=== PATIENT | female | born 1975 | race Caucasian/White ===

== ENCOUNTER → 2019-01-31 | Outpatient (CLI) | payer BC ==
[~2019-01-31] MED LIST: CYCL10 PO; IBUP600 PO; LEVONORGESTREL1 EACH PO; Lasix20 MG PO; Metformin HCl500 M1 PO; Norco 5-325 Ta1 EACH PO
== END | disposition home or self-care (01) ==
LOC: LAB SHORT 14:28 → LAB EV 14:28
DX: L02.415 Cutaneous abscess of right lower limb (principal); L03.115 Cellulitis of right lower limb
CPT/HCPCS: 87070; 87075; 87076; 87185; 87205

== ENCOUNTER → 2020-01-18 | Outpatient (CLI) | payer BC ==
[2020-01-19 10:08] LABS: Candida species (DNA Probe) Negative (NEGATIVE); G. vaginalis (DNA Probe) Positive (NEGATIVE); T. vaginalis (DNA Probe) Negative (NEGATIVE)
== END | disposition home or self-care (01) ==
LOC: LAB SHORT 18:18 → LAB 18:18
PROVIDERS: Obstetrics & Gynecology
DX: N89.8 Other specified noninflammatory disorders of vagina (principal)
CPT/HCPCS: 87480; 87510; 87660

== ENCOUNTER 2020-10-30 10:10 | Emergency (ER) | payer BC ==
[~2020-10-30] VITALS: Ht 175.3 cm; Wt 117.9 kg
[2020-10-30 10:59] LABS: BASOPHILS ABSOLUTE AUTO 0.06 K/mm3 (0.00-0.23); BASOPHILS PERCENT AUTO 1 % (0-2); EOSINOPHILS ABSOLUTE AUTO 0.12 K/mm3 (0.00-0.68); EOSINOPHILS PERCENT AUTO 2 % (0-6); Hematocrit 50.7 % (33.0-51.0); Hemoglobin 16.5 g/dL (11.5-16.0); IMMATURE GRAN ABSOLUTE AUTO 0.02 K/mm3 (0.00-0.10); IMMATURE GRAN PERCENT AUTO 0 % (0-1); LYMPHOCYTES ABSOLUTE AUTO 2.13 K/mm3 (0.84-5.20); LYMPHOCYTES PERCENT AUTO 31 % (21-46); MONOCYTES ABSOLUTE AUTO 0.51 K/mm3 (0.16-1.47); MONOCYTES PERCENT AUTO 8 % (4-13); Mean Corpuscular HGB 30.3 pg (26.0-34.0); Mean Corpuscular HGB Conc 32.5 g/dL (31.5-36.5); Mean Corpuscular Volume 93 fL (80-100); Mean Platelet Volume 10.6 fL (9.1-12.4); NEUTROPHILS ABSOLUTE AUTO 3.96 K/mm3 (1.96-9.15); NEUTROPHILS PERCENT AUTO 58 % (41-73); Platelet Count 212 K/mm3 (150-400); RDW Coefficient Variation 12.5 % (11.7-14.2); RDW Standard Deviation 42.4 fL (35.1-46.3); Red Blood Cell Count 5.45 M/mm3 (3.80-5.20)
[2020-10-30 11:21] LABS: Magnesium, Blood 2.2 mg/dL (1.6-2.4)
[2020-10-30 11:27] LABS: Alanine Aminotransfer (ALT/SGP 93 U/L (12-78); Albumin, Blood 3.3 g/dL (3.4-5.0); Albumin/Globulin Ratio 1.1 (0.8-1.8); Alk Phos 99 U/L (50-136); Anion Gap 2 mmol/L (6-16); Aspartate Aminotrans (AST/SGOT 50 U/L (12-37); Blood Urea Nitrogen 18 mg/dL (8-24); Bun/Creatinine Ratio 20.5 (12.0-20.0); CO2, Blood 30 mmol/L (21-32); Calcium, Blood 13.2 mg/dL (8.5-10.1); Chloride, Blood 115 mmol/L (98-108); Creatinine, Blood 0.88 mg/dL (0.40-1.00); Glomerular Filtration Rate >60 (60-); Glucose, Blood 91 mg/dL (70-99); Potassium, Blood 3.9 mmol/L (3.5-5.5); Sodium, Blood 147 mmol/L (136-145); Total Protein, Blood 6.3 g/dL (6.4-8.2)
== END 2020-10-30 13:36 | disposition home or self-care (01) ==
LOC: ER 10:10
PROVIDERS: Emergency Medicine
DX: E83.52 Hypercalcemia (principal); E03.9 Hypothyroidism, unspecified; Z79.899 Other long term (current) drug therapy
CPT/HCPCS: 80053; 83735; 83970; 84100; 85025; 93005; 93010; 96361; 96374; 99283-25; J1940; J7030

== ENCOUNTER 2020-12-19 06:15 | Day surgery (SDC) | payer BC ==
[~2020-12-19] VITALS: Ht 175.3 cm; Wt 123.4 kg
[2020-12-19] MEDS ORDERED: FISH OIL 1,2001 EAC7 PO (07:17)
[2020-12-19] MEDS ORDERED: ERGO400 PO (07:18)
[2020-12-19] MEDS ORDERED: Vitamin K100 MCG PO (07:18)
--- NOTE | 2020-12-19 10:05 | NUR ---
12/19/20 1005 Francoise Pierce BLOOD DRAW DONE IN R FOOT WITH 22 BUTTERFLY. SENT TO LAB.
--- NOTE | 2020-12-19 10:31 | NUR ---
12/19/20 1031 Kelly Bahena DC'[employer] AT 1030.
--- NOTE | 2020-12-19 11:13 | NUR ---
12/19/20 Guerita3 Lauren Rose PT O2% DROPS FROM 94% TO 89-91% ON ROOM AIR. PT CURRENTLY AT 2L PER NASAL CANULAL, O2 AT 96%.
== END 2020-12-19 12:26 | disposition home or self-care (01) ==
LOC: ORSCSDS 06:15
PROVIDERS: Otolaryngology
PROC: 0GBL0ZZ Excision of Right Superior Parathyroid Gland, Open Approach (ICD-10-PCS; principal; 2020-12-19 07:30)
DX: E21.0 Primary hyperparathyroidism (principal); D35.1 Benign neoplasm of parathyroid gland; E66.01 Morbid (severe) obesity due to excess calories; Z68.41 Body mass index [BMI] 40.0-44.9, adult
CPT/HCPCS: 83970; 88305; 88331; A9270; J1100; J2250; J2405; J2704; J2710; J3010; J7120

== ENCOUNTER → 2021-06-19 | Outpatient (CLI) | payer BC ==
[~2021-06-19] MED LIST changes: +ERGO400 PO; +FISH OIL 1,2001 EAC7 PO; +Vitamin K100 MCG PO
[2021-06-20 15:09] LABS: HPV 16 Negative (Negative); HPV 18 Negative (Negative); HPV OTHER HR TYPES Negative (Negative)
== END | disposition home or self-care (01) ==
LOC: LAB 13:40 → LAB SHORT 13:40
PROVIDERS: Obstetrics & Gynecology
DX: Z01.419 Encounter for gynecological examination (general) (routine) without abnormal findings (principal); N90.89 Other specified noninflammatory disorders of vulva and perineum
CPT/HCPCS: 87624; G0123

== ENCOUNTER → 2022-07-07 | Outpatient (CLI) | payer OTHER ==
[2022-07-08 16:08] LABS: HPV 16 Negative (Negative); HPV 18 Negative (Negative); HPV OTHER HR TYPES Negative (Negative)
== END | disposition home or self-care (01) ==
LOC: LAB 09:52 → LAB SHORT 09:52
PROVIDERS: Obstetrics & Gynecology
DX: Z01.419 Encounter for gynecological examination (general) (routine) without abnormal findings (principal)
CPT/HCPCS: 87624; G0123

== ENCOUNTER 2022-10-28 14:22 | Day surgery (SDC) | payer OTHER ==
[~2022-10-28] VITALS: Ht 175.3 cm; Wt 130.7 kg
--- NOTE | 2022-10-28 15:21 | NUR ---
10/28/22 1521 Kyle Brenner CALL LIGHT WITHIN REACH. TETRACAINE IN AT 1515 PLEDGETT IN AT 1517 IN RIGHT EYE
--- NOTE | 2022-10-28 16:34 | NUR ---
10/28/22 1634 Shayy Connors TFAT30 22.0D IMPLANTED OD. SN: [id number] EXP: 09/18/25
[2022-10-28 16:41] VITALS: BP 123/82
== END 2022-10-28 17:00 | disposition home or self-care (01) ==
LOC: ORSCSDS 14:22
PROVIDERS: Ophthalmology
PROC: 08RJ3JZ Replacement of Right Lens with Synthetic Substitute, Percutaneous Approach (ICD-10-PCS; principal; 2022-10-28 16:00)
DX: H25.11 Age-related nuclear cataract, right eye (principal); H52.201 Unspecified astigmatism, right eye; H52.4 Presbyopia; E66.01 Morbid (severe) obesity due to excess calories; Z68.41 Body mass index [BMI] 40.0-44.9, adult; Z96.1 Presence of intraocular lens; E78.5 Hyperlipidemia, unspecified; G71.00 Muscular dystrophy, unspecified; E28.2 Polycystic ovarian syndrome
CPT/HCPCS: J2001; J2250; J3010; J3301; J7040; V2632

== ENCOUNTER 2022-10-30 06:12 | Day surgery (SDC) | payer OTHER ==
[~2022-10-30] VITALS: Ht 175.3 cm; Wt 127.1 kg
--- NOTE | 2022-10-30 07:50 | NUR ---
Patient up to Ambulate independently. Gait steady. History, Chart, Medications and Allergies reviewed before start of procedure.Lungs clear T/O to Auscultation. Patient confirms NPO status and agrees with scheduled surgery. Patient states colon prep results clear. Pre-Op teaching done. Pt verbalizes understanding.
--- NOTE | 2022-10-30 08:17 | NUR ---
10/30/22 [address] PALACIOS; SEE ANESTHESIA RECORDS.
--- NOTE | 2022-10-30 11:59 | NUR ---
Discharge instructions reviewed with patient. Patient verbalizes understanding. Copy given to patient to take home. Patient States Post-Procedure ride home has been arranged. Discharged via wheelchair to private car for ride home. 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
== END 2022-10-30 22:50 | disposition home or self-care (01) ==
LOC: ORSCMMR 06:12 → ORD 08:00 → ORSCMMR 08:00 → ORD 10-31 08:00
PROVIDERS: Internal Medicine Gastroenterology
PROC: 0DBM8ZX Excision of Descending Colon, Via Natural or Artificial Opening Endoscopic, Diagnostic (ICD-10-PCS; principal; 2022-10-30 08:00)
PROC: 0DBH8ZX Excision of Cecum, Via Natural or Artificial Opening Endoscopic, Diagnostic (ICD-10-PCS; principal; 2022-10-30 08:00)
PROC: 0DBP8ZX Excision of Rectum, Via Natural or Artificial Opening Endoscopic, Diagnostic (ICD-10-PCS; principal; 2022-10-30 08:00)
DX: Z12.11 Encounter for screening for malignant neoplasm of colon (principal); D12.0 Benign neoplasm of cecum; K63.5 Polyp of colon; K62.1 Rectal polyp; E66.01 Morbid (severe) obesity due to excess calories; Z68.41 Body mass index [BMI] 40.0-44.9, adult
CPT/HCPCS: 88305; J2405; J2704; J7120

== ENCOUNTER 2024-12-07 11:16 | Inpatient (IN) | payer OTHER ==
[~2024-12-07] VITALS: Ht 175.3 cm; Wt 120.5 kg
[2024-12-07 14:39] LABS: BASOPHILS ABSOLUTE AUTO 0.04 K/mm3 (0.00-0.23); BASOPHILS PERCENT AUTO 1 % (0-2); EOSINOPHILS ABSOLUTE AUTO 0.06 K/mm3 (0.00-0.68); EOSINOPHILS PERCENT AUTO 1 % (0-6); Hematocrit 46.7 % (33.0-51.0); Hemoglobin 14.5 g/dL (11.5-16.0); IMMATURE GRAN ABSOLUTE AUTO 0.02 K/mm3 (0.00-0.10); IMMATURE GRAN PERCENT AUTO 0 % (0-1); LYMPHOCYTES ABSOLUTE AUTO 1.06 K/mm3 (0.84-5.20); LYMPHOCYTES PERCENT AUTO 18 % (21-46); MONOCYTES ABSOLUTE AUTO 0.43 K/mm3 (0.16-1.47); MONOCYTES PERCENT AUTO 7 % (4-13); Mean Corpuscular HGB 28.8 pg (26.0-34.0); Mean Corpuscular Volume 93 fL (80-100); NEUTROPHILS ABSOLUTE AUTO 4.24 K/mm3 (1.96-9.15); NEUTROPHILS PERCENT AUTO 73 % (41-73); Platelet Count 154 K/mm3 (150-400); RDW Coefficient Variation 15.9 % (11.7-14.2); RDW Standard Deviation 53.4 fL (35.1-46.3); Red Blood Cell Count 5.03 M/mm3 (3.80-5.20); White Blood Cell Count 5.85 K/mm3 (4.00-11.30)
[2024-12-07 14:58] LABS: Albumin, Blood 3.3 g/dL (3.4-5.0); Albumin/Globulin Ratio 1.1 (0.8-1.8); Bilirubin, Total 2.3 mg/dL (0.1-1.0); Bun/Creatinine Ratio 16.4 (12.0-20.0); Calcium, Blood 9.3 mg/dL (8.5-10.1); Creatinine, Blood 1.22 mg/dL (0.40-1.00); Globulin, Blood 3.1 g/dL (2.2-4.0); Potassium, Blood 4.3 mmol/L (3.5-5.5); Total Protein, Blood 6.4 g/dL (6.4-8.2)
[2024-12-07] MEDS ORDERED: Furosemide 10 MG/ML 4ML Vial IV ONE (21:20)
[2024-12-07] MEDS ORDERED: Bisacodyl 10 MG Supp PR PRN (22:50)
[2024-12-07] MEDS ORDERED: Polyethylene Glycol 3350 17 gm PO PRN (22:50)
[2024-12-07] MEDS ORDERED: Sennosides 8.6 MG Tab PO PRN (22:50)
[2024-12-08] VITALS (25 sets, daily range): BP systolic 77–152; BP diastolic 62–133
[2024-12-08 05:15] LABS: Hematocrit 47.3 % (33.0-51.0); Hemoglobin 14.6 g/dL (11.5-16.0); Mean Corpuscular HGB 28.6 pg (26.0-34.0); Mean Corpuscular HGB Conc 30.9 g/dL (31.5-36.5); Mean Corpuscular Volume 93 fL (80-100); Mean Platelet Volume 11.9 fL (9.1-12.4); Platelet Count 146 K/mm3 (150-400); RDW Coefficient Variation 15.7 % (11.7-14.2); RDW Standard Deviation 53.1 fL (35.1-46.3); Red Blood Cell Count 5.11 M/mm3 (3.80-5.20); White Blood Cell Count 6.75 K/mm3 (4.00-11.30)
[2024-12-08 05:41] LABS: Albumin, Blood 3.1 g/dL (3.4-5.0); Albumin/Globulin Ratio 0.9 (0.8-1.8); Bun/Creatinine Ratio 16.5 (12.0-20.0); Calcium, Blood 9.1 mg/dL (8.5-10.1); Creatinine, Blood 1.33 mg/dL (0.40-1.00); Globulin, Blood 3.3 g/dL (2.2-4.0); Magnesium, Blood 2.1 mg/dL (1.6-2.4); Total Protein, Blood 6.4 g/dL (6.4-8.2)
--- NOTE | 2024-12-08 06:33 | NUR ---
ADMIT PCU 18 REPORT RECEIVED BY THIS RN FROM CHIEF MEDICAL DIRECTOR, @ APPROX 0500 PT ARRIVED TO ROOM @ 0519 AND SELF TRANSFERRED TO THE BED VSS
--- NOTE | 2024-12-08 08:00 | NUR ---
assumption note: this rn to assume care of patient. patient called to use bathroom. uses cane at baseline & weak on the left side due to MS history. patient denied chest pain. on oxygen at 2 liters via nasal cannula.
[2024-12-08] MEDS ORDERED: Empagliflozin 10 MG TAB PO SCH (09:00)
[2024-12-08] MEDS ORDERED: Furosemide 10 MG/ML 4ML Vial IV SCH (09:00)
[2024-12-08] MEDS ORDERED: Heparin Sodium,Porcine 5,000 UNIT/0.5 ML SDV SC SCH (09:00)
--- NOTE | 2024-12-08 12:00 | NUR ---
HANDOFF: OTF TO TAKE OVER CARE OF PATIENT. REPORT WAS GIVEN & PATIENT & AT BEDSIDE WERE NOTIFIED.
[2024-12-08] MEDS ORDERED: Metoprolol Tartrate 1 MG/ML 5 ML VIAL IV ONE (12:25)
[2024-12-08] MEDS ORDERED: Metoprolol Tartrate 25 MG Tab PO SCH (13:00)
[2024-12-08] MEDS ORDERED: Lactated Ringer's 250 ML IV SCH (13:15)
--- NOTE | 2024-12-08 13:17 | NUR ---
MD NOTIFIED OF PT HR AND BP IN RESPONSE TO RECIEVING LOPRESSOR PUSH, SEE CHART FOR VALUES. MD INSTRUCTED THIS RN TO PLACE AND GIVE 250 ML BOLUS LR. ORDER PLACED.
[2024-12-08] MEDS ORDERED: Enoxaparin 120 MG/0.8 ML SYR SC SCH (14:47)
[2024-12-08] MEDS ORDERED: Metoprolol Succinate 25 MG TABCR PO SCH (15:00)
[2024-12-08] MEDS ORDERED: Multivitamins 1 Tab PO SCH (15:05)
[2024-12-08] MEDS ORDERED: Thiamine HCl 100 MG Tab PO SCH (15:05)
[2024-12-08] MEDS ORDERED: Furosemide 10 MG / ML 2ML Vial IV SCH (16:00)
--- NOTE | 2024-12-08 17:02 | NUR ---
PER DR. RENTERIA THE PT WAS ORDERED A 250CC BOLUS D/T HYPOTENSION POST LOPRESSOR 5MG PUSH, AND SYMPTOMATIC DIZZINESS AND FATIGUE. THIS RN STARTED THE PT'S BOLUS. WHILE THIS RN WAS IN ANOTHER PT'S ROOM, ANOTHER NURSE ADDED VOLUME TO THE BOLUS THINKING IT WAS SUPPOSSED TO BE A LITER. [facility] NURSE CALLED THIS RN AND ASKED ABOUT THE GTT AND SAID THERE WAS 400CC LEFT TO GIVE. THIS RN STOPPED WHAT SHE WAS DOING AND WENT TO PCU 18. THIS RN IMEDIATELY STOPPED THE BOLUS, DR. RENTERIA ARRIVED IN THE ROOM AT THIS TIME. WHEN CHECKING HOW MANY FLUDIS THE PT RECIEVED, IT SHOWED 680CC'S. DR. RENTERIA AND THIS RN REASSESSED THE PT AND SHE HAD NOTED INCREASED CRACKLES T/O HER LUNGS. SP02 >93% ON 2L OXYMIZER MASK, AND SHE DID NOT PRESENT WITH ANY SOB. DR. RENTERIA ORDERED LASIX TO BE GIVEN AN HOUR AFTER THE ASSESSMENT AND THEN WANTED METOPROLOL 12.5MG GIVEN IF BLOOD PRESSURE AND HR REMAINS STABLE. THIS RN WAS ABLE TO GIVE THE PT BOTH 2O MG IV LASIX AND THE METOPROLOL. MAP >65. SBP >90 AT THIS TIME. ON TELE SHE IS AFIB 90'S. SHE HAS BEEN TITRAITED DOWN TO 1L NC AND SP02 >93%. PT DENIES ANY INCREASED SOB. SHE DENIES ANY ANGINA OR CHEST PRESSURE. FAMILY AT BEDSIDE AND UPDATED ON CARE. SEE NOTES FOR UPDATES.
[2024-12-09] VITALS (8 sets, daily range): BP systolic 89–112; BP diastolic 61–95
[2024-12-09 04:45] LABS: Bun/Creatinine Ratio 18.7 (12.0-20.0); Calcium, Blood 9.4 mg/dL (8.5-10.1); Creatinine, Blood 1.34 mg/dL (0.40-1.00); Magnesium, Blood 2.1 mg/dL (1.6-2.4); Phosphorus, Blood 4.5 mg/dL (2.5-4.9); Potassium, Blood 3.7 mmol/L (3.5-5.5)
--- NOTE | 2024-12-09 05:41 | NUR ---
SHIFT SUMMARY PATIENT A&OX4. ON 2L O2 VIA OXIMASK. SHORTNESS OF BREATH NOTED. EDEMA PRESENT BLE. HEART RATE JUMPING TO 150'S UPON GETTING UP TO USE THE RESTROOM, OTHERWISE VITAL SIGNS STABLE. WILL CONTINUE TO MONITOR. CALL LIGHT IN REACH. NO ACUTE ISSUES NOTED OVERNIGHT.
[2024-12-09] MEDS ORDERED: Enoxaparin 120 MG/0.8 ML SYR SC SCH (09:00)
[2024-12-09] MEDS ORDERED: Apixaban 5 MG Tab PO SCH (09:00)
[2024-12-09] MEDS ORDERED: Losartan Potassium 25 MG Tab PO SCH (09:00)
[2024-12-09 11:54] LABS: CHOL/HDL RATIO 2.3; Cholesterol 128 mg/dL (50-200); HDL Cholesterol 55 mg/dL (>39); LDL/HDL RATIO 1.1; Low Density Lipoprotein Chol 61 mg/dL (0-110); Triglycerides 60 mg/dL (30-160); Very Low Density Lipoprot Chol 12 mg/dL (6-32)
[2024-12-09 12:32] LABS: Stool Occult Blood Guaiac 1 Neg (Neg)
--- NOTE | 2024-12-09 18:04 | NUR ---
SHIFT SUMMARY PT A/OX4 AND COOPERATIVE OF CARE. PT ABLE TO EXPRESS NEEDS AND CALLED APPROPIATE. PT UP IN CHAIR FOR FOR ENTIRE SHIFT, TOLERATED WELL. PT BP'S SOFT BUT STABLE. HR REMAINED 100-110'S, TACHED UP TO 140-150'S WHEN UP TO TOILET. PT DENIES CHEST PAIN/PRESSURE BUT DID ENDORSE SOB WITH EXERTION. OTHER VSS THROGHOUT SHIFT WITH O2 SATS IN THE 90'S ON 2L SIMPLE MASK OR 2L NC. PT TRIALED RA DURING DINNER, STATS 89-93, PT DENIED SOB AT THAT TIME. PT LETHARGIC DURING SHIFT, ABLE TO STAY AWAKE WHILE CONVERSING BUT FALLS ASLEEP EASILY. PT REPORTED DIFFICULTY WITH BM, PRUNE JUICE GIVEN PER REQUEST. PT VISITED AND UPDAED TODAY.
[2024-12-09] MEDS ORDERED: Metoprolol Succinate 25 MG TABCR PO SCH (21:00)
[2024-12-10] VITALS (7 sets, daily range): BP systolic 84–113; BP diastolic 59–98
[2024-12-10 04:41] LABS: Bun/Creatinine Ratio 21.8 (12.0-20.0); Calcium, Blood 8.9 mg/dL (8.5-10.1); Creatinine, Blood 1.33 mg/dL (0.40-1.00); Phosphorus, Blood 4.6 mg/dL (2.5-4.9); Potassium, Blood 3.9 mmol/L (3.5-5.5)
--- NOTE | 2024-12-10 05:53 | NUR ---
SHIFT SUMMARY PATIENT A&O X4. BLE EDEMA NOTED. CRACKLES HEARD IN BILATERAL UPPER LUNGS AND DIMINISHED LUNG SOUNDS IN THE BILATERAL LOWER LUNGS. PATIENT ON RA. PATIENT IS HYPOTENSIVE, MAP IS GREATER THAN 65. NO ACUTE ISSUES NOTED OVERNUGHT.
[2024-12-10] MEDS ORDERED: Metoprolol Succinate 25 MG TABCR PO SCH (09:00)
[2024-12-10] MEDS ORDERED: Potassium Chloride 20 MEQ TabCR PO ONE (11:00)
--- NOTE | 2024-12-10 17:15 | NUR ---
SHIFT SUMMARY PT A/OX4 AND COOPERATIVE OF CARE. PT ABLE TO EXPRESS NEEDS AND CALLS APPROPIATE. PT BP'S REMAINED SOFT THIS SHIFT WITH STABLE MAPS. PT SATS STABLE WHILE PT WAS ON RA FOR MOST OF SHIFT, PT APPLIED O2 WHEN SHE WAS SLEEPING. OTHER VSS THROUGHOUT SHIFT. NO RPEORT OF CHEST PAIN/PRESSURE THROUGHOUT SHIFT. PT DID ENDORSE SOB WITH EXERTION, NONE REPORTED WHILE REST. PT 1 PER AIST TO TOILET, PT USING CANE. PT CONTINUES TO ENDORSE THAT SHE "FEELS TIRED." PT LASIX INCREASED AND PT ALSO PUT ON 1800 ML FLUID RESTRICTION.
[2024-12-10] MEDS ORDERED: Furosemide 10 MG/ML 4ML Vial IV SCH (18:00)
[2024-12-11 04:27] VITALS: BP 92/69
--- NOTE | 2024-12-11 06:21 | NUR ---
SHIFT SUMMARY PT A&O X4, CALM, COOPERATIVE TO CARE. HR IN THE 80'S, AFIB, SHE DENIES CP/PRESSURE, NUMB/TINGLING, SBP IN THE 90'S, MAP >65. PT DENIES ANY SYMPTOMS. O2 >90% ON RA-2L VIA OXY MASK. PT HAS MASK AT BEDSIDE AND PUTS THE MASK ON WHEN SHE IS FEELING SOB. PT USES MASK T/O DAY NEEDED AND WITH SLEEP. PT CANNOT TOLERATE LAYING FLAT AND REMAINS IN RECLINER MOST OF THE NIGHT. PT UP AND AMBULATORY TO BATHROOM WITH CANE. DIURESING WELL. PT STILL HAS BLE SWELLING. SHE DENIES ANY CONCERNS AT THIS TIME. CALL LIGHT IN REACH. WILL MONITOR PT AND REPORT TO ONCOMING RN.
[2024-12-11 07:46] VITALS: BP 98/77
[2024-12-11 09:23] LABS: Bun/Creatinine Ratio 22.4 (12.0-20.0); Calcium, Blood 9.1 mg/dL (8.5-10.1); Creatinine, Blood 1.25 mg/dL (0.40-1.00); Potassium, Blood 3.6 mmol/L (3.5-5.5)
--- NOTE | 2024-12-11 10:09 | NUR ---
UPDATE PATIENT MADE NPO AT 0900. ORDERS FOR STRESS TEST. SPOKE WITH NUCLEAR MED, PLAN FOR STRESS TEST AROUND 1300. PATIENT UPDATED WITH PLAN OF CARE.
[2024-12-11 11:12] VITALS: BP 96/71
[2024-12-11] MEDS ORDERED: Caffeine Citrated 60 MG/3 ML Vial ONE (12:21)
[2024-12-11] MEDS ORDERED: Regadenoson 0.4 MG/5 ML SYRINGE ONE (12:21)
[2024-12-11 16:24] VITALS: BP 86/57
[2024-12-11 17:01] VITALS: BP 97/69
--- NOTE | 2024-12-11 17:21 | NUR ---
SHIFT SUMMARY PATIENT ALERT, ORIENTED x4. SOFT SPOKEN. ABLE TO MAKE NEEDS KNOWN. BP SOFT, MAP >65. TELE READING AFIB. ON 2L PRN, SPO2 >90%. PATIENT STANDBY TO BATHROOM USING CANE. TOLERATING PO. PATIENT COMPLETED FIRST PORTION OF STRESS TEST THIS SHIFT, PLAN TO COMPLETE SECOND PORTION TOMORROW. OTHERWISE NO CHANGES, WILL REPORT TO DEPARTMENT HEAD JUNIOR COLLEGE RN.
[2024-12-11] MEDS ORDERED: Furosemide 10 MG / ML 2ML Vial IV SCH (18:00)
[2024-12-11 20:47] VITALS: BP 109/59
[2024-12-12] VITALS (9 sets, daily range): BP systolic 86–117; BP diastolic 58–93
--- NOTE | 2024-12-12 05:56 | NUR ---
PATIENT STAYED IN RECLINER CHAIR ALL NIGHT TO SLEEP. STATES SHE SLEEPS BETTER THERE. SLEEP STUDY CONDUCTED. UP TO BATHROOM INDEPENDENTLY. LOWER EXTREMITY EDEMA. SOME SHORTNESS OF BREATH WITH ACTIVITY. ALERT, ORIENTATED. ABLE TO MAKE NEEDS KNOWN. CONTINUE CARE
[2024-12-12 06:47] LABS: Creatinine, Blood 1.38 mg/dL (0.40-1.00); Potassium, Blood 3.6 mmol/L (3.5-5.5)
[2024-12-12] MEDS ORDERED: Potassium Chloride 20 MEQ TabCR PO SCH (08:00)
[2024-12-12] MEDS ORDERED: Furosemide 10 MG/ML 4ML Vial IV SCH (13:00)
--- NOTE | 2024-12-12 18:31 | NUR ---
SHIFT SUMMARY: A/OX4, PLEASANT AND COOPERATIVE WITH CARE. AFIB, BBB, FREQUENT PVC'S, HR 90'S-100'S, ON TELE, NEW ONSET HFrEF 20-25%, MAP <70, SOFT BP, STRESS TEST COMPLETED THIS MORNING, FLUID RESTRICTION OF 1500 ML/DAY, 4+BLE PITTING EDEMA FROM ANKLE TO [place], 3+ PITTING EDEMA TO FEET, DENIES CP OR PRESSURE. 02 >92% ON 2.5L VIA NC, HAS A MASK AT BEDSIDE FOR SLEEP AND TIMES OF INCREASED SOB, DOES NOT TOLERATE LAYING FLAT AND SLEEPS IN THE RECLINER, DENIES COUGH. HAD A BARIUM SWALLOW COMPLETED TODAY WITH NEW DIET ORDERS: MINCED/MOIST, MILDLY THICKENED LIQUIDS, PATIENT REPORTS LAST BM 12/12/24, 1 PERSON SBA, AMBULATES WITH A CANE TO THE BEDSIDE COMMODE IN THE BATHROOM, HAS A FWW IN ROOM, OUTPUT (1150)/INPUT (1060). COMPLAINT OF TWO POPPED BLISTERS TO RIGHT POSTERIOR CALF, CLEANED AND LEFT OPEN TO AIR. PATIENT IS RESTING IN HER RECLINER WITH CALL LIGHT IN REACH.
--- NOTE | 2024-12-12 19:52 | NUR ---
CARE ASSUMED NOW FOR THIS PATIENT. REPORT RECEIVED FROM KIMBERLY RN AND LISA RN. PATIENT IS ABLE TO PARTICIPATE IN BEDSIDE REPORT AND IS ASKING QUESTIONS REGARDING HER FLUID RESTRICTION. ALL QUESTIONS ANSWERED. CONTINUE CARE
[2024-12-13] VITALS (17 sets, daily range): BP systolic 85–105; BP diastolic 56–81
[2024-12-13 04:44] LABS: Bun/Creatinine Ratio 23.6 (12.0-20.0); Calcium, Blood 9.2 mg/dL (8.5-10.1); Creatinine, Blood 1.23 mg/dL (0.40-1.00); Potassium, Blood 3.7 mmol/L (3.5-5.5)
--- NOTE | 2024-12-13 05:17 | NUR ---
PATIENT DID NOT SLEEP ALL NIGHT. DOZED ON AND OFF IN RECLINER CHAIR BUT VERY LITTLE. UNSTEADY ON FEET, NEEDS TO BE WITHIN ARMS REACH, GAIT BELT, WALKER OR CANE. STATES SHE HAS FALLEN AT HOME. 1500 ML FLUID RESTRICTION. BILATERAL LE LEGS STILL VERY EDEMATOUS. NEEDS REMINDERS TO KEEP LEGS ELEVATED. CONTINUE CARE
[2024-12-13] MEDS ORDERED: Potassium Chloride 20 MEQ/15 ML UDC PO ONE (08:00)
[2024-12-13] MEDS ORDERED: Furosemide 10 MG/ML 4ML Vial IV SCH ×2 (08:00→12:00)
[2024-12-13] MEDS ORDERED: Aspirin 81 MG Chew PO SCH (09:00)
[2024-12-13] MEDS ORDERED: Atorvastatin 40 MG Tab PO SCH (09:00)
[2024-12-13] MEDS ORDERED: AcetaZOLAMIDE 250 MG Tab PO SCH (09:00)
[2024-12-13] MEDS ORDERED: Verapamil HCL 2.5 MG/ML 2ML Injection ONE (13:15)
[2024-12-13] MEDS ORDERED: NS 1,000 ML IV ONE ×2 (13:16)
[2024-12-13] MEDS ORDERED: Heparin Sodium 1000 Units/ML 10ML MDV ONE (13:16)
[2024-12-13] MEDS ORDERED: Nitroglycerin 2 MG/20 ML BTL ONE (13:16)
[2024-12-13] MEDS ORDERED: NS 250 ML IV ONE (13:16)
[2024-12-13] MEDS ORDERED: Midazolam HCl 1MG / ML 2ML Vial ONE (13:57)
[2024-12-13] MEDS ORDERED: FentaNYL Citrate 50 MCG/ML 2 ML Injection ONE (13:57)
[2024-12-13] MEDS ORDERED: Phenylephrine HCl 100 MCG/ML-NS 10MLSYR (1MG/10ML) ONE (14:08)
[2024-12-13] MEDS ORDERED: Digoxin 0.25 MG/ML 2ML Amp ONE (14:12)
[2024-12-13] MEDS ORDERED: Digoxin 0.25 MG/ML 2ML Amp IV SCH (17:30)
--- NOTE | 2024-12-13 17:48 | NUR ---
SHIFT SUMMARY: PT A&OX4 CALM AND COOPERATIVE. UNSTEADY GAIT. PT 1 PERSON ASSIST TO BSC. CALLS APPROPRIATELY. 1500ML FLUID RESTRICTION. SOFT BPS WITH SBP 80S-90S. MORNING METOPROLOL AND LASIX HELD. PROVIDER NOTIFED AND ADJUSTED ORDER FOR LASIX. TR BAND IN PLACE. SITE IS CLEAN AND DRY. RECOVERED PER ORDERS PT TOLERATING WELL. PLAN OF CARE ONGOING.
--- NOTE | 2024-12-13 20:07 | NUR ---
ASSUMED CARE OF THIS PATIENT AT 1915. PT IS A+O X4 ABLE TO MAKE NEEDS KNOWN, CALL LIGHT IN REACH. R RADIAL ACCESS SITE SOFT, NONTENDER, FREE OF BRUSING OR HEMATOMA ARM BOARD IN PLACE. EVENING METOPROLOL AND [place] HELD FOR BP OF 88/66, BP HAVE BEEN "SOFT" ALL DAY. MAP ABOVE 65. PT IS A 1 PERSON TRANSFER W/ CANE TO THE [facility], RECENTLY HAD A FALL AND IS WEARING A YELLOW HOSPITAL GOWN. SO FAR SHE IS USING HER CALL LIGHT AND CALLING FOR HELP. 1050 mls OF URINE SINCE START OF SHIFT.
[2024-12-13] MEDS ORDERED: Metoprolol Succinate 25 MG TABCR PO SCH ×2 (21:00)
[2024-12-13] MEDS ORDERED: Losartan Potassium 25 MG Tab PO SCH (21:00)
[2024-12-13] MEDS ORDERED: Apixaban 5 MG Tab PO SCH (21:00)
[2024-12-14] VITALS (8 sets, daily range): BP systolic 89–113; BP diastolic 58–77
[2024-12-14 01:41] LABS: Hematocrit 44.2 % (33.0-51.0); Hemoglobin 13.4 g/dL (11.5-16.0); Mean Corpuscular HGB 28.3 pg (26.0-34.0); Mean Corpuscular HGB Conc 30.3 g/dL (31.5-36.5); Mean Corpuscular Volume 93 fL (80-100); Mean Platelet Volume 11.9 fL (9.1-12.4); Platelet Count 147 K/mm3 (150-400); RDW Standard Deviation 51.5 fL (35.1-46.3); Red Blood Cell Count 4.74 M/mm3 (3.80-5.20); White Blood Cell Count 4.67 K/mm3 (4.00-11.30)
[2024-12-14 01:55] LABS: Bun/Creatinine Ratio 22.3 (12.0-20.0); Calcium, Blood 9.3 mg/dL (8.5-10.1); Creatinine, Blood 1.21 mg/dL (0.40-1.00); Potassium, Blood 3.2 mmol/L (3.5-5.5)
--- NOTE | 2024-12-14 06:02 | NUR ---
SHIFT SUMMARY PT IS A+O X4 ABLE TO MAKE NEEDS KNOWN, WALKS WITH CANE AT BASELINE. PT WAS FEELING A BIT UNSTEADY DURING THE NIGHT WALKING TO AND FROM THE BATHROOM, SWTCHED TO USING BSC FOR SAFETY. PT SLEPT SITTING UP IN THE CHAIR FOR HALF THE NIGHT THE OTHER HALF I ASKED HER TO SLEEP IN THE BED FOR AWHILE TO ELAVATE HER LEGS, WHICH SHE DID. PT BP HAS REMAINED SOFT THIS SHIFT. PT ON TELE AFIB W/ BBB, PVC'S (TRIGEM). EKG OBTAINED LAST NIGHT AND PLACED IN THE CHART. DENIES CHEST PAIN/ PRESSURE OR PAIN OF ANY KIND. CALLS APPT. BED IN LOWEST POSTION, CALL LIGHT IN REACH WILL REPORT TO ONCOMING RN.
[2024-12-14] MEDS ORDERED: Potassium Chloride 20 MEQ TabCR PO ONE (07:00)
[2024-12-14] MEDS ORDERED: Potassium Chloride 20 MEQ/15 ML UDC PO ONE (08:10)
[2024-12-14] MEDS ORDERED: Digoxin 0.125 MG Tab PO SCH (09:00)
[2024-12-14] MEDS ORDERED: Metoprolol Succinate 25 MG TABCR PO SCH (09:00)
[2024-12-14] MEDS ORDERED: Potassium Chloride 20 MEQ TabCR PO SCH (09:00)
--- NOTE | 2024-12-14 16:52 | NUR ---
SUMMARY- PT A/O X4, UP IN THE CHAIR MOST OF THE DAY. PIVOT TX OVER TO BEDSIDE COMMODE- DIURESING PT. COMPLIANT WITH FLUID RESTRICTION, APPEARS PT IS 2.5L DOWN. PT LUNGS WITH CRACKLES IN THE R BASE. MIN DYSMPNE WITH EXERTION. SBP REMAINS SOFT 90'S AND CONSISTANT. DR JORGE DESIRES PT RECEIVES METOPROLOL FOR SBP >90, AND WISHES PT TO BE KEPT ON TELE SHOULD SHE BE TX TO MEDICAL STATUS. PT TOLERATING ALL MEALS WITH A MINCED/MOIST DIET FOR MUSC DYST HX AND WEAKNESS WITH SWALLOW, TOLERATED PILLS WHOLE IN APPLE SAUCE. PT'S KCL LOW, RELPACED THIS AM WITH ORAL DOSING. WILL F/U WITH AM LABS. WILL REPORT TO AJ EVANS
[2024-12-15] VITALS (23 sets, daily range): BP systolic 80–120; BP diastolic 49–105
[2024-12-15 05:12] LABS: Bun/Creatinine Ratio 21.7 (12.0-20.0); Calcium, Blood 9.7 mg/dL (8.5-10.1); Creatinine, Blood 1.06 mg/dL (0.40-1.00); Magnesium, Blood 2.3 mg/dL (1.6-2.4); Potassium, Blood 3.3 mmol/L (3.5-5.5)
--- NOTE | 2024-12-15 06:33 | NUR ---
SHIFT SUMMARY PT IS A+O X4 ABLE TO MAKE NEEDS KNOWN, COOPERATIVE WITH CARE. ONE PERSON SBA TO THE BSC SHE CAN BE UNSTEADY ON HER FEET AND HAD A FALL DURING HER HOSPITAL STAY. SHE AMBULATES WITH A CANE AT BASELINE. SHE SLEPT IN THE RECLINER LAST NIGHT AND DID NOT WANT TO TRANSFER TO THE BED WHEN OFFERED. SE REMAINED ON 2L NC T/O THE NIGHT SATTING ABOVE 90% SpO2. TELE REMAINS IN PLACE WITH NO CHANGES AFIB W/ PVCs, BBB. DENIES CHEST PAIN OR PRESSURE. BLOOD PRESSURE SOFT THIS MORNING SYSTOLIC 80's, MORNING LASIX HELD AT THIS TIME. CALL LIGHT IN REACH, WILL REPORT TO ONCOMING RN.
[2024-12-15] MEDS ORDERED: Potassium Chloride 20 MEQ/15 ML UDC PO ONE (07:20)
[2024-12-15] MEDS ORDERED: Potassium Chloride 20 MEQ TabCR PO SCH (09:00)
--- NOTE | 2024-12-15 17:48 | NUR ---
Shift Summary Pt alert, oriented this am, appears to be sleeping intermittently t/o, wakes easily to verbal stimuli. Pt calm and cooperative with care. Pt denies pain, chest pain/pressure, sob, nausea, dizziness and numb/tingling. BP soft for majority of shift, help lasix and metoprolol per parameters. Tele afib, 60-80's. Edema noted. Spo2 >90% on 1l 2o via nc. Life vest at bedside, being place. Call light within reach
[2024-12-15] MEDS ORDERED: Metoprolol Succinate 25 MG TABCR PO SCH (18:00)
[2024-12-15] MEDS ORDERED: Dopamine/Dextrose 250 ML IV SCH (19:30)
[2024-12-15] MEDS ORDERED: Furosemide 100 MG in NS 100 ML IV SCH (19:30)
--- NOTE | 2024-12-15 19:30 | NUR ---
Discussed BP, 80/52 (62) with Dr Ramires and was reccommended to discuss with Dr Salas and was redirected to Dr Ramires. Per Dr Ramires, plans to give lasix this evening and change holding parameters to hold if map less than 60. Gave 1800 dose of lasix iv 40 mg. Received call from Dr Salas to discuss case at 1920, new order to d/c iv push lasix, metoprolol and losartan and start iv lasix gtt continuous at 10 mg/hr, dopamine starting at 2.5 mcg/kg/min titrate up to 15 mcg/kg/min to keep systolic >90; hold dopamine if heart rate >120 bpm and transfer pt to ICU. Report given to Rn assuming care of patient.
--- NOTE | 2024-12-15 19:53 | NUR ---
TRANSFER TO ICU ASSUMED CARE OF PT @1909 - RECEIVED REPORT FROM ROJELIO Hilton RN. ROJELIO Hilton ON PHONE WITH HOSPITALIST / INSTRUCTOR EXTENSION WORK REGARDING CONTINUED LOW BP'S. DECISION MADE TO TRANSFER TO ICU. ORDERS PLACED. REPORT GIVEN LAINA Riggs RN ICU. RELINQUISHED CARE OF PT @ 1948. PT TO ICU .
--- NOTE | 2024-12-15 22:23 | NUR ---
PATIENT TO ICU 7 FROM PCU 18 AT APPROX 1950. PATIENT IS ALERT AND ORIENTED X4, WALKED FROM WHEEL CHAIR TO BED. SP02 96% ON 1-2L VIA NC. DENIES SOB. HR A.FIB, BB, PVCs 60-s-70s, LIFE VEST CURRENTLY ON. BP STABLE, WILL START DOPAMINE IF NEEDED TO MAINTAIN SYSTOLIC >90. LASIX DRIP STARTED, CALLED DR. JORGE TO SEE IF HE WANTED URINE OUTPUT PERAMETER, NONE GIVEN AT THIS TIME, LASIX AT SET RATE OF 10MG/HR. PT UP 1 PERSON ASSIST TO BSC, PUREWICK PLACED AT NIGHT FOR SLEEP. PHOTOS OF WOUNDS UPDATED AND IN CHART. CALL LIGHT IN REACH
[2024-12-16] VITALS (75 sets, daily range): BP systolic 74–111; BP diastolic 38–94
[2024-12-16 01:33] LABS: Bun/Creatinine Ratio 22.9 (12.0-20.0); Calcium, Blood 9.7 mg/dL (8.5-10.1); Creatinine, Blood 1.09 mg/dL (0.40-1.00); Magnesium, Blood 2.4 mg/dL (1.6-2.4); Potassium, Blood 3.9 mmol/L (3.5-5.5)
--- NOTE | 2024-12-16 06:42 | NUR ---
SHIFT SUMMARY PATIENT IS ALERT AND ORIENTED X4. SP02 96% ON 1-2L VIA BC, DENIES SOB AT REST. HR A.FIB, BBB, FREQUENT PVCs, RATE 70s-80s. BP REMAINED STABLE THROUGH THE NIGHT, DOPAMINE WAS NEVER STARTED, SYSTOLIC REMAINED ABOVE 90. DENIES CP PRESSURE. LIFE VEST ON. LASIX DRIP INFUSING THROUGH THE NIGHT, PATIENT HAS HAD 4600 MLS OUT SINCE DRIP WAS STARTED. PUREWICK IN PLACE WITH ATTENDS. PATIENT ENCOURAGED TO REPOSITION EVERY TWO HOURS AND ASSISTANCE NEEDED. PHOTOS UPDATED IN CHART, WOUND ON LLE AND BRUISING AND REDNESS ON COCCYX/BUTTOCKS. CALL LIGHT IN REACH
[2024-12-16] MEDS ORDERED: Potassium Chloride 20 MEQ/15 ML UDC PO ONE ×2 (07:00→09:15)
--- NOTE | 2024-12-16 07:56 | NUR ---
ASSUMED CARE BEDSIDE REPORT RECIEVED. PT RESTING IN BED, ALERT AND ORIENTED. DR BURGER, MULTIPLE RESIDENTS, AND DR JORGE AT BEDSIDE TO DISCUSS PLAN OF CARE WITH PT INPUT. AWAITING NEW MED ORDERS.
[2024-12-16] MEDS ORDERED: DOBUtamine 250 MG/D5W 250 ML 250 ML IV SCH (08:30)
[2024-12-16] MEDS ORDERED: Milrinone/Dextrose 100 ML IV SCH (10:10)
[2024-12-16] MEDS ORDERED: Ondansetron HCl 2 MG / ML 2ML Vial IV PRN ×2 (14:35→15:00)
[2024-12-16 17:01] LABS: BASOPHILS ABSOLUTE AUTO 0.02 K/mm3 (0.00-0.23); BASOPHILS PERCENT AUTO 0 % (0-2); EOSINOPHILS ABSOLUTE AUTO 0.04 K/mm3 (0.00-0.68); EOSINOPHILS PERCENT AUTO 1 % (0-6); Hematocrit 46.9 % (33.0-51.0); Hemoglobin 14.4 g/dL (11.5-16.0); IMMATURE GRAN ABSOLUTE AUTO 0.01 K/mm3 (0.00-0.10); IMMATURE GRAN PERCENT AUTO 0 % (0-1); LYMPHOCYTES ABSOLUTE AUTO 0.63 K/mm3 (0.84-5.20); LYMPHOCYTES PERCENT AUTO 13 % (21-46); MONOCYTES ABSOLUTE AUTO 0.42 K/mm3 (0.16-1.47); MONOCYTES PERCENT AUTO 9 % (4-13); Mean Corpuscular HGB 28.4 pg (26.0-34.0); Mean Corpuscular HGB Conc 30.7 g/dL (31.5-36.5); Mean Corpuscular Volume 93 fL (80-100); Mean Platelet Volume 11.3 fL (9.1-12.4); NEUTROPHILS ABSOLUTE AUTO 3.85 K/mm3 (1.96-9.15); NEUTROPHILS PERCENT AUTO 77 % (41-73); Platelet Count 171 K/mm3 (150-400); RDW Coefficient Variation 13.9 % (11.7-14.2); RDW Standard Deviation 47.5 fL (35.1-46.3); Red Blood Cell Count 5.07 M/mm3 (3.80-5.20); White Blood Cell Count 4.97 K/mm3 (4.00-11.30)
--- NOTE | 2024-12-16 17:33 | NUR ---
SHIFT SUMMARY PT HAS REMAINED ALERT AND ORIENTED THROUGHOUT THE SHIFT. PT SLEEPING OFF AND ON THIS AFTERNOON. PT HAS DENIED PAIN OR SOB THIS SHIFT. PT CONTINUES WITH HR IN AFIB 90-120'S AT THIS TIME. PT TRIALED ON DOBUTAMINE AND MILRINONE GTT'S THIS SHIFT PER DR JORGE. PT DID NOT TOLERATED DUE TO CONTINUED HYPOTENSION. PT WITH DOPAMINE INFUSING AT 2 MCG/KG/MIN AT THIS TIME THROUGH PIV. PT WITH LASIX GTT AT 10 MG/HR. PUREWICK REMAINS IN PLACE WITH YELLOW URINE OUTPUT NOTED. PT ASSISTS WITH REPOSITIONING IN BED, BUT IS WEAK WITH MOVEMENT. EDEMA TO BLE'S UNCHANGED. PT WITH POOR APPETITE THIS SHIFT. PT ON 2L O2 NC. PT SPOUSE AT BEDSIDE THIS AFTERNOON. WILL CONTINUE TO MONITOR AND REPORT OFF TO ONCOMING RN.
[2024-12-17] VITALS (72 sets, daily range): BP systolic 69–121; BP diastolic 44–88
[2024-12-17 03:52] LABS: Albumin, Blood 3.1 g/dL (3.4-5.0); Albumin/Globulin Ratio 0.9 (0.8-1.8); Bilirubin, Total 1.9 mg/dL (0.1-1.0); Bun/Creatinine Ratio 23.3 (12.0-20.0); Calcium, Blood 9.5 mg/dL (8.5-10.1); Creatinine, Blood 1.2 mg/dL (0.40-1.00); Globulin, Blood 3.3 g/dL (2.2-4.0); Magnesium, Blood 2.2 mg/dL (1.6-2.4); Potassium, Blood 5.2 mmol/L (3.5-5.5); Total Protein, Blood 6.4 g/dL (6.4-8.2)
--- NOTE | 2024-12-17 05:52 | NUR ---
SHIFT SUMMARY PATIENT WAS DROWSY AND SLEPT MOST OF SHIFT. NURSE ENCOURAGED REPOSITIONING OF BODY EVERY 2 HOURS AND INTAKE OF FLUID (WATER). PATIENT IS ON A FLUID RESTRICTION OF 1500MLS AT NIGHT. PATIENT IS A&O X4 AND ABLE TO MAKE HER NEEDS KNOWN. WAS AT BEDSIDE AT START OF SHIFT, HE WENT HOME AROUNG 1999. PATIENT HAS PUREWICK IN PLACE DRAINING TO SUCTION. HR HAS BEEN IN THE IN 80'S WITH A HIGH OF 106 ONCE. SBP IN THE 90'S TO 110'S. HAS RIGHT HAND 20G IV AND LEFT WRIST 20G IV. LASIX RUNNING @10MLS AND DOPAMINE RUNNING @2 MCG. PATIENT LIKES TO SLEEP IN A SEMI HULL POSITION DUE TO BECOMING SOB WHEN LAYS DOWN TO FLAT. CALL LIGHT WITHIN REACH.
[2024-12-17] MEDS ORDERED: Metolazone 2.5 MG Tab PO SCH (12:00)
[2024-12-17] MEDS ORDERED: Furosemide 80 MG Tab PO SCH (12:00)
[2024-12-17] MEDS ORDERED: Furosemide 40 MG Tab PO SCH (14:30)
--- NOTE | 2024-12-17 14:52 | NUR ---
DOPAMINE RESTARTED TO MAINTAIN MAP >65, SEE FLOW SHEETS FOR TITRATIONS. WILL HOLD SECOND PO LASIX DOSE UNTIL B/P STABILIZED.
--- NOTE | 2024-12-17 18:24 | NUR ---
SHIFT SUMMARY PATIENT ALERT AND ORIENTED X4. CALLS APPROPRIATELY AND ABLE TO MAKE HER NEEDS KNOWN. MOVING ALL EXTREMITIES WELL BUT ON GONG WEAKNESS. CARDIAC: SBP 70S-100S. DOPAMINE GTT RESTARTED 2MCG/KG/MIN TO MAINTAIN MAP >65. ATRIAL FIBRILLATION, WITH SOME PVCS. DENIES ANY DIZZINESS/NAUSEA OR SOB. LASIX GTT STOPPED AND INITATED ORAL MEDICATION THERAPY SEE OCT. PULMONARY: BIBASILAR CRACKLES, UPPER LOBES CLEAR. ON 2LPM O2 VIA NC, SPO2 99-100%. TRIAL ON RA, PT SPO2 87%. : URINE YELLOW, PURE WICK IN PLACE. GI: ABDO SOFT/NONTENDER. MOBILTY: UP TO RECLINER TODAY SBA/MIN ASSIST WITH FWW. UP TO COMMODE. BED BATH, BEDDING CHANGE AND GOWN CHANGE TODAY. FAMILY INTO VISIT TODAY. TRIAGE CLINICIAN IN TO VISIT. PT DID WELL ON CURRENT DIET NO S/S OF ASPIRATION TODAY.
[2024-12-18] VITALS (42 sets, daily range): BP systolic 80–125; BP diastolic 52–97
[2024-12-18 03:48] LABS: Albumin, Blood 3.1 g/dL (3.4-5.0); Albumin/Globulin Ratio 0.8 (0.8-1.8); Bilirubin, Total 1.7 mg/dL (0.1-1.0); Bun/Creatinine Ratio 26.9 (12.0-20.0); Calcium, Blood 9.9 mg/dL (8.5-10.1); Creatinine, Blood 1.19 mg/dL (0.40-1.00); Globulin, Blood 3.7 g/dL (2.2-4.0); Magnesium, Blood 2.5 mg/dL (1.6-2.4); Potassium, Blood 3.5 mmol/L (3.5-5.5); Total Protein, Blood 6.8 g/dL (6.4-8.2)
--- NOTE | 2024-12-18 05:46 | NUR ---
SHIFT SUMMARY PATIENT SLEPT THROUGH SHIFT. AT BEDSIDE AT START AND THEN LEFT AROUND 1999. PATIENT DRANK WATER TOTAL 390 THROUGH SHIFT. PATIENT LIKES TO BEEN IN SEMI FOWLERS POSITION TO SLEEP. NURSE ENCOURAGED PATIENT TO REPOSTION AND EDUCATED PATIENT ON TH EIMPORTANCES. PATIENT WS IN CHAIR WHEN SHIFT STARTED. A&O X4, SBP 110-125'S AND HR IN 70-80'S. PATIENT ON 1L OF O2 VIA NC. DOPAMINE RUNNING @ 2MCG INFUSING IN LEFT WRIST 20G IV. IV WAS CHECKED Q HOUR FOR REDNESS, PAIN, OR SWELLING, NONE WAS NOTED SURING SHIFT. RIGHT HAND 20G IV SALINE LOCKED. PATIENT ON FREE FLUID RESTRICTION OF 1500, 1000MLS DURING DAY AND 500MLS DURING NIGHT. PATIENT HAS PUREWICK WITH DEPENDS IN PLACE. CALL LIGHT WITHIN REACH.
[2024-12-18] MEDS ORDERED: Potassium Chloride 20 MEQ/15 ML UDC PO SCH (08:02)
[2024-12-18] MEDS ORDERED: Spironolactone 50 MG Tab PO SCH (09:00)
--- NOTE | 2024-12-18 11:53 | NUR ---
REASSESSMENT PT HAS BEEN SITTING UP IN THE CHAIR SINCE RIGHT AFTER BREAKFAST. SHE JUST GOT UP TO THE COMMODE FOR BM AND VOID. SHE OPTED TO LEAVE THE PUREWICK OUT AT THIS TIME BECAUSE SHE THINKS SHE WILL BE CONTINENT. SHE REMAINS ALERT AND ORIENTED. DOPAMINE GTT TURNED OFF ABOUT 0830 THIS MORNING AND MAP HAS REMAINED ABOVE 65. DR. RUFFIN STATED THAT HE IS OK WITH A MAP LESS THAN 65 LONG PT'S MENTATION IS CLEAR AND SHE IS MAKING URINE. REMAINS IN AFIB WITH RATE IN THE 80S, FREQUENT PVCS. PT'S VISITED THIS MORNING AND HAS BEEN UPDATED.
--- NOTE | 2024-12-18 17:46 | NUR ---
SHIFT SUMMARY PT SPENT THE DAY SITTING UP IN THE CHAIR. SHE GETS UP TO THE COMMODE TO VOID. OFFERED TO TAKE PT ON A WALK, BUT SHE REFUSED. ALSO OFFERED A SHOWER, BUT PT ONLY WANTED A BED BATH. LUNGS ARE CLEAR IN THE UPPERS, CRACKLES IN THE BASES. REMAINS ON 1L/NC. ATTEMPTED TO TURN IT OFF, BUT PT DROPPED TO 86%. PT HAS BEEN HAVING A SMALL AMT OF BLOOD IN HER NOSE WELL. ADDED HUMIDITY TO HER OXYGEN. AFIB WITH MULTIPLE PVC. MAP HAS BEEN ABOVE 65, PT IS ALERT AND ORIENTED, AND PT IS VOIDING. EATING ALL OF HER MEALS. 2 BMS TODAY. PT'S SPENT MOST OF THE DAY AT THE BEDSIDE.
[2024-12-19] VITALS (11 sets, daily range): BP systolic 96–128; BP diastolic 53–80
[2024-12-19 03:16] LABS: BASOPHILS ABSOLUTE AUTO 0.04 K/mm3 (0.00-0.23); BASOPHILS PERCENT AUTO 1 % (0-2); EOSINOPHILS ABSOLUTE AUTO 0.12 K/mm3 (0.00-0.68); EOSINOPHILS PERCENT AUTO 2 % (0-6); Hematocrit 44.5 % (33.0-51.0); Hemoglobin 14.1 g/dL (11.5-16.0); IMMATURE GRAN ABSOLUTE AUTO 0.01 K/mm3 (0.00-0.10); IMMATURE GRAN PERCENT AUTO 0 % (0-1); LYMPHOCYTES PERCENT AUTO 26 % (21-46); MONOCYTES ABSOLUTE AUTO 0.56 K/mm3 (0.16-1.47); MONOCYTES PERCENT AUTO 9 % (4-13); Mean Corpuscular HGB 28.8 pg (26.0-34.0); Mean Corpuscular HGB Conc 31.7 g/dL (31.5-36.5); Mean Corpuscular Volume 91 fL (80-100); NEUTROPHILS ABSOLUTE AUTO 3.72 K/mm3 (1.96-9.15); NEUTROPHILS PERCENT AUTO 61 % (41-73); Platelet Count 154 K/mm3 (150-400); RDW Coefficient Variation 13.8 % (11.7-14.2); RDW Standard Deviation 46.1 fL (35.1-46.3); Red Blood Cell Count 4.89 M/mm3 (3.80-5.20); White Blood Cell Count 6.05 K/mm3 (4.00-11.30)
[2024-12-19 03:36] LABS: Albumin, Blood 3.2 g/dL (3.4-5.0); Albumin/Globulin Ratio 0.9 (0.8-1.8); Bilirubin, Total 1.7 mg/dL (0.1-1.0); Calcium, Blood 9.5 mg/dL (8.5-10.1); Creatinine, Blood 1.16 mg/dL (0.40-1.00); Globulin, Blood 3.5 g/dL (2.2-4.0); Magnesium, Blood 2.6 mg/dL (1.6-2.4); Potassium, Blood 3.2 mmol/L (3.5-5.5); Total Protein, Blood 6.7 g/dL (6.4-8.2)
[2024-12-19] MEDS ORDERED: Potassium Chloride 20 MEQ TabCR PO ONE (03:50)
--- NOTE | 2024-12-19 05:19 | NUR ---
SHIFT SUMMARY PATIENT SLEPT VERY WELL THROUGH SHIFT, ONLY GETTING UP TO USE BEDSIDE COMMODE. PATIENT USED PUREWICK WHILE IN BED SLEEPING WITH DEPENDS UNDER HER. A&O X4, SBP 90-110'S AND HR 70-80'S. HAD PUDDING WITH MEDS AND ON A FREE FLUID RESTRICTION TOTAL 600MLS ON SHIFT. HAS RIGHT HAND 20G IV AND LEFT WRIST 20G IV BOTH SALINE LOCKED. PATIENT ON 1L OF OXYGEN VIA NC SATTING ABOVE 95%. PATIENT USES CALL LIGHT WHEN NEEDS SOMETHING. PATIENT LIKES TO SLEEP IN SEMI FOWLERS POSITION BUT TURNS SLIGHTLY TO SIDES. CALL LIGHT WITH REACH.
[2024-12-19 10:41] LABS: Calcium, Blood 9.8 mg/dL (8.5-10.1); Creatinine, Blood 1.13 mg/dL (0.40-1.00); Potassium, Blood 3.9 mmol/L (3.5-5.5)
--- NOTE | 2024-12-19 12:18 | NUR ---
REASSESSMENT PT REMAINS ALERT AND ORIENTED. SAT UP IN THE CHAIR THIS MORNING AFTER SHE WOKE UP. PUREWICK REMOVED SOON PT WAS OUT OF BED. SHE WALKED TO THE SHOWER WITH AIDE THIS MORNING. LUNGS ARE CLEAR IN THE UPPERS, CRACKLES IN THE BASES. CONTINUES IN AFIB WITH PVCS. MAP 79. EATING WELL. DR. BURGER ROUNDED AND GAVE OK FOR HER TO BE PCU STATUS. PT'S AT THE BEDSIDE.
--- NOTE | 2024-12-19 16:41 | NUR ---
SHIFT SUMMARY PT HAS BEEN SITTING UP IN THE CHAIR FOR THE DURATION OF THE SHIFT. SHE REMAINS ALERT AND ORIENTED. LUNGS STILL HAVE A FEW CRACKLES IN THE BASES. ATTEMPTED TO TITRATE OFF OXYGEN, BUT DROPS TO THE 80s ON RA, 94% ON 0.5L/NC. REMAINS IN AFIB WITH FREQUENT PVC, MAP HOLDING ABOVE 65. GETTING UP TO THE COMMODE TO VOID. EATING ALL OF HER MEALS, COMPLIANT WITH FLUID RESTRICTION. PT'S HSUBAND VISITED AND WAS UPDATED.
--- NOTE | 2024-12-19 18:16 | NUR ---
TRANSFER PT TRANSFERRED TO PCU 14 VIA WC WITH RN AND AIDE . REPORT GIVEN TO ARMEN DOS SANTOS RN. ALL BELONGINGS TRANSFERRED WITH PT. PT TOLERATED TRANSFER WELL. PT'S AWARE OF NEW ROOM NUMBER.
[2024-12-20 00:38] VITALS: BP 92/71
[2024-12-20 04:43] VITALS: BP 98/73
[2024-12-20 05:04] LABS: Albumin, Blood 3.4 g/dL (3.4-5.0); Albumin/Globulin Ratio 0.9 (0.8-1.8); Bilirubin, Total 1.7 mg/dL (0.1-1.0); Bun/Creatinine Ratio 34.1 (12.0-20.0); Calcium, Blood 9.8 mg/dL (8.5-10.1); Creatinine, Blood 1.23 mg/dL (0.40-1.00); Globulin, Blood 3.8 g/dL (2.2-4.0); Magnesium, Blood 2.8 mg/dL (1.6-2.4); Potassium, Blood 3.4 mmol/L (3.5-5.5); Total Protein, Blood 7.2 g/dL (6.4-8.2)
--- NOTE | 2024-12-20 06:54 | NUR ---
SHIFT SUMMARY: PT IS A&OX4 WITH FLAT AFFECT. HYPOTENSIVEON, SYS 90'S MAP >65, ON 1L NC, SATS >95%, DROPS TO 88% ON RA. REMAINS IN A-FIB IN THE 80'S WITH RUNS OF BIGEMINY, AND OCCASIONAL TRIGEMINY. DENIES PAIN. TOLERATING A MINCED AND MOIST DIET WITH 1500 ML FLUID RESTRICTION. TAKES PILLS WHOLE ONE AT A TIME IN APPLESAUCE. X1 ASSIST TO BSC. PT IS CONTINENT/INCONTINENT OF URINE, PULL-UP IN PLACE AND CHANGED NEEDED. VOIDING ADEQUATE AMOUNTS OF CONCENTRATED URINE. X1 LARGE BM THIS SHIFT. BED IN LOWEST POSITION, CALL LIGHT WITHIN REACH. CALLS APPROPRIATELY AND IS ABLE TO ADVOCATE NEEDS EFFECTIVELY.
[2024-12-20] MEDS ORDERED: Potassium Chloride 20 MEQ TabCR PO ONE (07:30)
[2024-12-20 07:56] VITALS: BP 99/51
[2024-12-20 11:45] VITALS: BP 105/81
[2024-12-20 16:02] VITALS: BP 105/59
--- NOTE | 2024-12-20 17:59 | NUR ---
SHIFT SUMMARY: PT A&OX4 CALM AND COOPERATIVE. TRIALED ROOM AIR BUT PT DESAT TO 88%. RECONNECTED TO 1L NC AND MAINTAINED >94%. PT REPORTED NO SOB OR CHEST PAIN. 1 PERSON ASSIST TO BATHROOM. NO INCIDENCE OF INCONTINENCE DURING SHIFT. PT RECOMMENDED HOME HEALTH. HOME O2 CONSULT COMPLETED TODAY. PLAN TO DISCHARGE TOMORROW. USES CALL LIGHT APPROPRIATELY AND BED IS LOCKED AND LOW.
--- NOTE | 2024-12-20 19:41 | NUR ---
ASSUMPTION OF CARE ASSUMED PT'S CARE AT 1900,BEDSIDE REPORT COMPLETED.PT ASSISTED TO THE BEDSIDE COMMODE.PT DENIES PAIN,DENIES NEEDS.CALL LIGHT AND PT'S ITEMS WITHIN REACH.WILL CONTINUE TO MONITOR.
[2024-12-20 19:59] VITALS: BP 104/55
[2024-12-20] MEDS ORDERED: Carvedilol 3.125 MG Tab PO SCH (21:00)
[2024-12-21 00:20] VITALS: BP 92/62
[2024-12-21 00:25] VITALS: BP 77/55
[2024-12-21 00:27] VITALS: BP 92/62
[2024-12-21 04:37] LABS: BASOPHILS ABSOLUTE AUTO 0.05 K/mm3 (0.00-0.23); BASOPHILS PERCENT AUTO 1 % (0-2); EOSINOPHILS ABSOLUTE AUTO 0.12 K/mm3 (0.00-0.68); EOSINOPHILS PERCENT AUTO 2 % (0-6); Hematocrit 46.2 % (33.0-51.0); Hemoglobin 14.4 g/dL (11.5-16.0); IMMATURE GRAN ABSOLUTE AUTO 0.03 K/mm3 (0.00-0.10); IMMATURE GRAN PERCENT AUTO 1 % (0-1); LYMPHOCYTES ABSOLUTE AUTO 1.55 K/mm3 (0.84-5.20); LYMPHOCYTES PERCENT AUTO 29 % (21-46); MONOCYTES ABSOLUTE AUTO 0.58 K/mm3 (0.16-1.47); MONOCYTES PERCENT AUTO 11 % (4-13); Mean Corpuscular HGB Conc 31.2 g/dL (31.5-36.5); Mean Corpuscular Volume 90 fL (80-100); Mean Platelet Volume 10.8 fL (9.1-12.4); NEUTROPHILS ABSOLUTE AUTO 2.99 K/mm3 (1.96-9.15); NEUTROPHILS PERCENT AUTO 56 % (41-73); Platelet Count 188 K/mm3 (150-400); RDW Coefficient Variation 13.7 % (11.7-14.2); RDW Standard Deviation 45.2 fL (35.1-46.3); Red Blood Cell Count 5.15 M/mm3 (3.80-5.20); White Blood Cell Count 5.32 K/mm3 (4.00-11.30)
[2024-12-21 04:40] VITALS: BP 104/79
[2024-12-21 05:07] LABS: Albumin, Blood 3.3 g/dL (3.4-5.0); Albumin/Globulin Ratio 0.9 (0.8-1.8); Bilirubin, Total 1.4 mg/dL (0.1-1.0); Bun/Creatinine Ratio 34.1 (12.0-20.0); Calcium, Blood 9.8 mg/dL (8.5-10.1); Creatinine, Blood 1.35 mg/dL (0.40-1.00); Globulin, Blood 3.7 g/dL (2.2-4.0); Potassium, Blood 3.4 mmol/L (3.5-5.5)
--- NOTE | 2024-12-21 06:35 | NUR ---
PT SLEPT IN CHAIR FOR PART OF THE NIGHT,WENT TO BED AT 0230.HR 70'S-80'S,NO C/O CHEST PAIN/DISCOMFORT.COMPLAINED OF CONSTIPATION,PRN SENNA GIVEN.PT HAD A MEDIUM BOWEL MOVEMENT.OXYGEN SATURATION >92% ON 1L VIA NC.PT DENIES SOB.BP REMAIN SOFT ,SBP 80'S-104.PT RESTING IN BED SLEEPING AT THIS TIME.CALL LIGHT AND PT'S ITEMS WITHIN REACH.BED IN THE LOWEST POSITION.PT DENIES NEEDS AT THIS TIME.WILL GIVE REPORT TO DAYSHIFT NURSE FOR CONTINUITY OF CARE.
[2024-12-21 07:20] VITALS: BP 97/52
[2024-12-21] MEDS ORDERED: Potassium Chloride 20 MEQ TabCR PO ONE (08:00)
[2024-12-21 11:14] VITALS: BP 91/57
[2024-12-21] MEDS ORDERED: ELIQUIS5 M2 PO (11:44)
[2024-12-21] MEDS ORDERED: CARV3.125 PO (11:46)
[2024-12-21] MEDS ORDERED: JARDIANCE10 MG PO (11:47)
[2024-12-21] MEDS ORDERED: DIGOX125 MC1 PO (11:47)
[2024-12-21] MEDS ORDERED: FURO80 PO (11:48)
[2024-12-21] MEDS ORDERED: POTA20LUD PO (11:49)
[2024-12-21] MEDS ORDERED: SPIR50 PO (11:49)
--- NOTE | 2024-12-21 13:58 | NUR ---
SHIFT SUMMARY: PT A&OX4 CALM AND COOPERATIVE DURING SHIFT. HOME O2 EVAL COMPLETED AND PT DID NOT QUALIFY. DISCHARGE EDUCATION COMPLETED AND LIFEVEST ON PT. PT VERBALIZED UNDERSTANDING. DISCHARGE HOME WITH HOME HEALTH. PRESENT AT DISCHARGE.
[2024-12-21 14:28] LABS: CORTISOL, FREE BY ED/LC-MS/MS 1.09 ug/dL
== END 2024-12-21 14:07 | disposition home health service (06) | DRG 286 ==
LOC: ER 11:16 → PCU 22:46 → ERHOLD 22:46 → PCU 12-08 05:25 → ICUE 12-15 19:50 → PCU 12-19 18:25
PROVIDERS: Family Medicine; Hospitalist; Internal Medicine Cardiovascular Disease; Student in an Organized Health Care Education/Training Program; ADMIT Student in an Organized Health Care Education/Training Program
PROC: 4A023N7 Measurement of Cardiac Sampling and Pressure, Left Heart, Percutaneous Approach (ICD-10-PCS; principal; 2024-12-13)
PROC: B2111ZZ Fluoroscopy of Multiple Coronary Arteries using Low Osmolar Contrast (ICD-10-PCS; 2024-12-13)
DX: I13.0 Hypertensive heart and chronic kidney disease with heart failure and stage 1 through stage 4 chronic kidney disease, or unspecified chronic kidney disease (principal); I50.21 Acute systolic (congestive) heart failure; I48.19 Other persistent atrial fibrillation; E87.3 Alkalosis; I42.0 Dilated cardiomyopathy; I44.7 Left bundle-branch block, unspecified; G71.11 Myotonic muscular dystrophy; E87.6 Hypokalemia; R13.10 Dysphagia, unspecified; I50.82 Biventricular heart failure; N18.32 Chronic kidney disease, stage 3b; I34.0 Nonrheumatic mitral (valve) insufficiency; K59.00 Constipation, unspecified; F41.9 Anxiety disorder, unspecified; Z90.710 Acquired absence of both cervix and uterus; Z98.890 Other specified postprocedural states; Z79.899 Other long term (current) drug therapy
CPT/HCPCS: 36415; 71046; 74230; 76937; 78452; 80048; 80053; 80061; 82272; 82530; 83690; 83735; 83880; 84100; 84484; 85025; 85027; 92526; 92610; 92611; 93005; 93010; 93017; 93458; 94761; 94762; 96374; 97110; 97116; 97162; 97165; 97530; 97535; 99152; 99153; 99285-25; A9270; A9500; C1769; C1894; C8929; J0706; J1160; J1250; J1265; J1644; J1650; J1940; J2250; J2260; J2371; J2405; J2785; J3010; J7030; J7050; J7120; Q9957; Q9967

== ENCOUNTER 2025-04-22 07:07 | Emergency (ER) | payer OTHER ==
[~2025-04-22] VITALS: Ht 175.3 cm; Wt 103.9 kg
[~2025-04-22 07:07] MED LIST changes: +CARV3.125 PO; +DIGOX125 MC1 PO; +ELIQUIS5 M2 PO; +FURO80 PO; +JARDIANCE10 MG PO; +POTA20LUD PO; +SPIR50 PO
[2025-04-22 08:05] LABS: BASOPHILS ABSOLUTE AUTO 0.04 K/mm3 (0.00-0.23); BASOPHILS PERCENT AUTO 1 % (0-2); EOSINOPHILS ABSOLUTE AUTO 0.19 K/mm3 (0.00-0.68); EOSINOPHILS PERCENT AUTO 3 % (0-6); Hematocrit 37.9 % (33.0-51.0); Hemoglobin 12.2 g/dL (11.5-16.0); IMMATURE GRAN ABSOLUTE AUTO 0.02 K/mm3 (0.00-0.10); IMMATURE GRAN PERCENT AUTO 0 % (0-1); LYMPHOCYTES ABSOLUTE AUTO 1.42 K/mm3 (0.84-5.20); LYMPHOCYTES PERCENT AUTO 21 % (21-46); MONOCYTES ABSOLUTE AUTO 0.42 K/mm3 (0.16-1.47); MONOCYTES PERCENT AUTO 6 % (4-13); Mean Corpuscular HGB Conc 32.2 g/dL (31.5-36.5); Mean Corpuscular Volume 96 fL (80-100); NEUTROPHILS ABSOLUTE AUTO 4.56 K/mm3 (1.96-9.15); NEUTROPHILS PERCENT AUTO 69 % (41-73); NRBC ABSOLUTE 0.00 K/mm3 (0.00-0.02); NRBC Auto 0.0 /100 WBC (0.0-0.2); Platelet Count 158 K/mm3 (150-400); RDW Coefficient Variation 12.5 % (11.7-14.2); RDW Standard Deviation 43.8 fL (35.1-46.3)
[2025-04-22 08:47] LABS: Alanine Aminotransfer (ALT/SGP 95 U/L (12-78); Albumin, Blood 3.2 g/dL (3.4-5.0); Albumin/Globulin Ratio 0.9 (0.8-1.8); Anion Gap 7 mmol/L (3-11); Aspartate Aminotrans (AST/SGOT 67 U/L (12-37); Bilirubin, Total 0.4 mg/dL (0.1-1.0); Blood Urea Nitrogen 34 mg/dL (8-24); CO2, Blood 27 mmol/L (21-32); Calcium, Blood 8.7 mg/dL (8.5-10.1); Chloride, Blood 113 mmol/L (98-108); Creatinine, Blood 1.56 mg/dL (0.40-1.00); Globulin, Blood 3.6 g/dL (2.2-4.0); Glucose, Blood 94 mg/dL (70-99); Magnesium, Blood 2.4 mg/dL (1.6-2.4); Potassium, Blood 5.0 mmol/L (3.5-5.5); Sodium, Blood 142 mmol/L (136-145); Total Protein, Blood 6.8 g/dL (6.4-8.2)
[2025-04-22 09:00] VITALS: BP 97/60
== END 2025-04-22 09:22 | disposition home or self-care (01) ==
LOC: ER 07:07
PROVIDERS: Emergency Medicine
DX: R79.9 Abnormal finding of blood chemistry, unspecified (principal); I50.20 Unspecified systolic (congestive) heart failure; Z79.01 Long term (current) use of anticoagulants; Z79.899 Other long term (current) drug therapy; I48.91 Unspecified atrial fibrillation; N18.9 Chronic kidney disease, unspecified
CPT/HCPCS: 80053; 80162; 83735; 85025; 93005; 93010; 99285-25

== ENCOUNTER 2025-08-24 13:31 | Observation (INO) | payer OTHER ==
[~2025-08-24] VITALS: Ht 175.3 cm; Wt 104.0 kg
[2025-08-24 14:15] LABS: BASOPHILS ABSOLUTE AUTO 0.06 K/mm3 (0.00-0.23); BASOPHILS PERCENT AUTO 1 % (0-2); EOSINOPHILS ABSOLUTE AUTO 0.10 K/mm3 (0.00-0.68); EOSINOPHILS PERCENT AUTO 1 % (0-6); Hematocrit 45.8 % (33.0-51.0); Hemoglobin 14.9 g/dL (11.5-16.0); IMMATURE GRAN ABSOLUTE AUTO 0.02 K/mm3 (0.00-0.10); IMMATURE GRAN PERCENT AUTO 0 % (0-1); LYMPHOCYTES ABSOLUTE AUTO 1.73 K/mm3 (0.84-5.20); LYMPHOCYTES PERCENT AUTO 20 % (21-46); MONOCYTES ABSOLUTE AUTO 0.45 K/mm3 (0.16-1.47); MONOCYTES PERCENT AUTO 5 % (4-13); Mean Corpuscular HGB Conc 32.5 g/dL (31.5-36.5); Mean Corpuscular Volume 94 fL (80-100); NEUTROPHILS ABSOLUTE AUTO 6.50 K/mm3 (1.96-9.15); NEUTROPHILS PERCENT AUTO 73 % (41-73); NRBC ABSOLUTE 0.00 K/mm3 (0.00-0.02); NRBC Auto 0.0 /100 WBC (0.0-0.2); Platelet Count 187 K/mm3 (150-400); RDW Coefficient Variation 12.1 % (11.7-14.2); RDW Standard Deviation 41.9 fL (35.1-46.3)
[2025-08-24 14:46] LABS: Alanine Aminotransfer (ALT/SGP 108.0 U/L (12-78); Albumin, Blood 3.5 g/dL (3.4-5.0); Albumin/Globulin Ratio 1.0 (0.8-1.8); Anion Gap 8.0 mmol/L (3-11); Aspartate Aminotrans (AST/SGOT 63.0 U/L (12-37); Bilirubin, Total 0.6 mg/dL (0.1-1.0); Blood Urea Nitrogen 32.0 mg/dL (8-24); CO2, Blood 25.0 mmol/L (21-32); Calcium, Blood 9.6 mg/dL (8.5-10.1); Chloride, Blood 114.0 mmol/L (98-108); Creatinine, Blood 1.36 mg/dL (0.40-1.00); Globulin, Blood 3.5 g/dL (2.2-4.0); Glucose, Blood 98.0 mg/dL (70-99); Magnesium, Blood 2.4 mg/dL (1.6-2.4); Potassium, Blood 4.9 mmol/L (3.5-5.5); Sodium, Blood 142.0 mmol/L (136-145); Total Protein, Blood 7.0 g/dL (6.4-8.2)
[2025-08-24] MEDS ORDERED: Amiodarone HCl 450 MG in NS 250 ML IV SCH (15:55)
[2025-08-24] MEDS ORDERED: Amiodarone HCl 150 MG in NS 100 ML IV ONE (15:55)
[2025-08-24] MEDS ORDERED: FLU VACC TS2025-26(6MOS UP)/PF 45 MCG/0.5 ML SYRINGE IM SCH (16:25)
[2025-08-24] MEDS ORDERED: DAPAGLIFLOZIN10 MG PO (16:36)
[2025-08-24] MEDS ORDERED: METO50ER PO (16:36)
[2025-08-24] MEDS ORDERED: ENTRESTO 24 MG1 EAC2 PO (16:37)
[2025-08-24] MEDS ORDERED: CARV6.25 PO (16:37)
[2025-08-24] MEDS ORDERED: FURO20 PO (16:37)
[2025-08-24] MEDS ORDERED: VITAMIN D5000 UNIT PO (16:37)
[2025-08-24 20:28] VITALS: BP 98/60
--- NOTE | 2025-08-24 20:40 | NUR ---
UPDATE SPOKE WITH DR MORALES TO CLARIFY METOPROLOL ORDER. PATIENT TAKES 75MG PO BID AT HOME, HOSPTIAL DOSE IS 100MG PO. T/O TO GIVE 500ML NS BOLUS TO INCREASE SBP >100, THEN GIVE DOSE OF METOPROLOL OF 100MG PO TONIGHT.
[2025-08-24] MEDS ORDERED: NS 500 ML IV ONE (21:00)
[2025-08-25 00:06] VITALS: BP 80/52
[2025-08-25 00:28] VITALS: BP 89/64
[2025-08-25 03:17] VITALS: BP 96/59
[2025-08-25 04:08] LABS: BASOPHILS ABSOLUTE AUTO 0.04 K/mm3 (0.00-0.23); BASOPHILS PERCENT AUTO 1 % (0-2); EOSINOPHILS ABSOLUTE AUTO 0.12 K/mm3 (0.00-0.68); EOSINOPHILS PERCENT AUTO 1 % (0-6); Hematocrit 43.2 % (33.0-51.0); Hemoglobin 14.0 g/dL (11.5-16.0); IMMATURE GRAN ABSOLUTE AUTO 0.02 K/mm3 (0.00-0.10); IMMATURE GRAN PERCENT AUTO 0 % (0-1); LYMPHOCYTES ABSOLUTE AUTO 2.16 K/mm3 (0.84-5.20); LYMPHOCYTES PERCENT AUTO 26 % (21-46); MONOCYTES ABSOLUTE AUTO 0.49 K/mm3 (0.16-1.47); MONOCYTES PERCENT AUTO 6 % (4-13); Mean Corpuscular HGB Conc 32.4 g/dL (31.5-36.5); Mean Corpuscular Volume 95 fL (80-100); NEUTROPHILS ABSOLUTE AUTO 5.52 K/mm3 (1.96-9.15); NEUTROPHILS PERCENT AUTO 66 % (41-73); NRBC ABSOLUTE 0.00 K/mm3 (0.00-0.02); NRBC Auto 0.0 /100 WBC (0.0-0.2); Platelet Count 172 K/mm3 (150-400); RDW Coefficient Variation 12.1 % (11.7-14.2); RDW Standard Deviation 41.9 fL (35.1-46.3)
[2025-08-25 04:34] LABS: Alanine Aminotransfer (ALT/SGP 88.0 U/L (12-78); Albumin, Blood 3.1 g/dL (3.4-5.0); Albumin/Globulin Ratio 1.0 (0.8-1.8); Anion Gap 6.0 mmol/L (3-11); Aspartate Aminotrans (AST/SGOT 45.0 U/L (12-37); Bilirubin, Total 0.5 mg/dL (0.1-1.0); Blood Urea Nitrogen 36.0 mg/dL (8-24); CO2, Blood 28.0 mmol/L (21-32); Calcium, Blood 9.1 mg/dL (8.5-10.1); Chloride, Blood 113.0 mmol/L (98-108); Creatinine, Blood 1.4 mg/dL (0.40-1.00); Globulin, Blood 3.2 g/dL (2.2-4.0); Glucose, Blood 95.0 mg/dL (70-99); Potassium, Blood 4.7 mmol/L (3.5-5.5); Sodium, Blood 142.0 mmol/L (136-145); Total Protein, Blood 6.3 g/dL (6.4-8.2)
--- NOTE | 2025-08-25 05:32 | NUR ---
SHIFT SUMMARY PATIENT A/OX4. PLEASANT AND COOPERATIVE WITH ALL CARE. CONTINUOUS CARDIAC MONITORING. V-PACED @ 90BPM WITHOUT ECTOPY. RHYTHM AND RATE UNCHANGED ALL SHIFT. PATIENT DENIED CARDIAC SYMPTOMS. NO SOB, N/V, DIZZINESS. UP TO RR WITH SBA AND FWW. RECEIVED NS BOLUS PER EMAR. ANDREW PO INTAKE WELL. INITIALLY TOLD THAT PATIENT WOULD BE NPO AT MIDNIGHT FOR POSSIBLE CARDIOVERSION IN AM, BUT WAS CHANGED PRIOR TO COMING TO ROOM. AMIO GTT WAS ALSO STOPPED PRIOR TO COMING TO PCU. PATIENT ANXIOUS TO DISCHARGE AND ASKED SEVERAL TIMES ABOUT LEAVING TODAY. EDUCATED ON PATIENT, NURSE, AND PROVIDER ROUNDS. NO OTHER ACUTE CHANGES OVERNIGHT. PLAN OF CARE ONGOING.
[2025-08-25 08:54] VITALS: BP 77/52
--- NOTE | 2025-08-25 09:24 | NUR ---
THIS RN CALLED TO NOTIFY OF PT'S BP. PT ASYMPTOMATIC. PER PROVIDER, HOLD DIURETICS AND ENTRESTO, GIVE METOPROLOL AND DIGOXIN.
== END 2025-08-25 12:15 | disposition home or self-care (01) ==
LOC: ER 13:31 → PCU 13:32
PROVIDERS: Physician Assistant; ADMIT Internal Medicine
DX: I48.19 Other persistent atrial fibrillation (principal); R79.89 Other specified abnormal findings of blood chemistry; G71.11 Myotonic muscular dystrophy; I50.22 Chronic systolic (congestive) heart failure; I42.0 Dilated cardiomyopathy; I45.10 Unspecified right bundle-branch block; I95.89 Other hypotension; J44.9 Chronic obstructive pulmonary disease, unspecified; N18.30 Chronic kidney disease, stage 3 unspecified; E28.2 Polycystic ovarian syndrome; E66.01 Morbid (severe) obesity due to excess calories; Z68.33 Body mass index [BMI] 33.0-33.9, adult; Z79.899 Other long term (current) drug therapy; Z79.01 Long term (current) use of anticoagulants; E89.2 Postprocedural hypoparathyroidism; Z95.810 Presence of automatic (implantable) cardiac defibrillator
CPT/HCPCS: 36415; 80053; 83735; 84484; 85025; 93005; 93010; 93306; 96361; 96374; 96375; 99285-25; A9270; G0378; J0282; J1160; J7040; J7050